=== PATIENT | male | born 1950 | race Hispanic/Latino ===

== ENCOUNTER 2022-06-20 08:54 | Emergency (ER) | payer MEDICARE ==
[~2022-06-20] VITALS: Ht 177.8 cm; Wt 96.6 kg
[2022-06-20 09:44] LABS: APPEARANCE,URINE CLEAR (CLEAR); BILIRUBIN,URINE NEGATIVE (NEGATIVE); COLOR,URINE LIGHT-YELLOW (YELLOW); GLUCOSE, URINE (UA) TRACE mg/dL (NEGATIVE); KETONES,URINE NEGATIVE (NEGATIVE); LEUKOCYTE ESTERASE ,URINE NEGATIVE Leu/uL (NEGATIVE); NITRATE,URINE NEGATIVE (NEGATIVE); OCCULT BLOOD,URINE NEGATIVE (NEGATIVE); PH,URINE 5.5 (5.0-8.0); PROTEIN,URINE NEGATIVE (NEGATIVE); UROBILINOGEN,URINE 0.2 mg/dL (0.2-1.0)
[2022-06-20 09:49] LABS: MUCUS,URINE RARE LPF (None Seen); OTHER CASTS, URINE 1 /LPF (None Seen); RBC,URINE 0-1 /HPF (0-1); WBC,URINE 0-1 /HPF (0-1)
[2022-06-20 09:57] LABS: BASOPHILS % (AUTO) 0.1 % (0.0-5.0); EOSINOPHILS % (AUTO) 0.4 % (0.0-8.0); HEMATOCRIT 44.3 % (42-54); LYMPHOCYTES % (AUTO) 13.6 % (21.0-51.0); MEAN CORPUSCULAR HEMOGLOBIN 30.3 pg (27.0-33.0); MEAN CORPUSCULAR HGB CONC 34.8 g/dL (32.0-36.0); MONOCYTES % (AUTO) 5.5 % (3.0-13.0); PLATELET COUNT (AUTO) 171 K/uL (130-400); RED BLOOD CELL COUNT(AUTO) 5.09 MIL/uL (4.50-6.20); RED CELL DISTRIBUTION WIDTH 12.5 % (11.0-15.5); WHITE BLOOD COUNT (AUTO) 6.9 K/uL (4.8-10.8)
[2022-06-20 10:06] LABS: CREATININE 0.9 mg/dL (0.5-1.5); POTASSIUM 4.1 mmol/L (3.5-5.1)
[2022-06-20 11:02] VITALS: BP 148/80
== END 2022-06-20 11:41 | disposition home or self-care (01) ==
LOC: EDH 08:54
DX: N40.1 Benign prostatic hyperplasia with lower urinary tract symptoms (principal); R33.9 Retention of urine, unspecified; Z79.899 Other long term (current) drug therapy
CPT/HCPCS: 36415; 51702; 80048; 81001; 85025

== ENCOUNTER 2022-06-30 08:50 | Emergency (ER) | payer MEDICARE ==
[~2022-06-30] VITALS: Ht 177.8 cm; Wt 95.3 kg
[2022-06-30 08:55] VITALS: BP 138/77
== END 2022-06-30 09:27 | disposition home or self-care (01) ==
LOC: EDH 08:50
DX: Z46.6 Encounter for fitting and adjustment of urinary device (principal)
CPT/HCPCS: 99281

== ENCOUNTER 2022-06-30 15:48 | Emergency (ER) | payer MEDICARE ==
[~2022-06-30] VITALS: Ht 177.8 cm; Wt 95.3 kg
[2022-06-30 16:00] VITALS: BP 156/87
== END 2022-06-30 17:30 | disposition home or self-care (01) ==
LOC: EDH 15:48
DX: Z46.6 Encounter for fitting and adjustment of urinary device (principal); Z96.649 Presence of unspecified artificial hip joint
CPT/HCPCS: 51702